=== PATIENT | male | born 1990 | race Native Hawaiian/Other Pacific Islander ===

== ENCOUNTER 2021-06-12 11:11 | Emergency (ER) | payer OTHER ==
[~2021-06-12] VITALS: Ht 180.3 cm; Wt 90.0 kg
[2021-06-12 11:28] VITALS: BP 150/89
[2021-06-12] MEDS ORDERED: AMOX-422 PO (11:33)
[2021-06-12] MEDS ORDERED: amox tr/potassium clavulanate 875/125mg TAB PO ONE (11:35)
== END 2021-06-12 11:57 | disposition home or self-care (01) ==
LOC: ER 11:12
DX: S61.031A Puncture wound without foreign body of right thumb without damage to nail, initial encounter (principal); Z79.2 Long term (current) use of antibiotics; W55.01XA Bitten by cat, initial encounter; Y93.89 Activity, other specified; Y92.89 Other specified places as the place of occurrence of the external cause; Y99.8 Other external cause status
CPT/HCPCS: 99283